=== PATIENT | male | born 1945 | race Caucasian/White ===

== ENCOUNTER 2017-08-06 14:59 | Observation (INO) | payer MEDICARE ==
--- NOTE | 2017-08-06 16:08 | ERPHSYRPT ---
- History of Present Illness Time Seen by Provider: 08/06/17 15:54 Exam Limitations: no limitations Patient Subjective Stated Complaint: pt here for a cylinder ice pack in rectum since saturday and unable to remove it, pt states he is able to feel it with hes finger Triage Nursing Assessment: pt alert, resp easy, skin w/d/p,abd soft, no pain Physician History: The patient is a 71-year-old male complaining of a long tube lodged in his rectum since Saturday. He states that he was using a frozen cylinder approximately 1 inch in diameter and 8 inches long to soothe his hemorrhoids. He placed this in his rectum with the help of his girlfriend. The tube went beyond the anus and has been lodged up in the rectum. He has tried stool softeners without relief of dislodging the tube, however, he has been able to have a bowel movement around the tube. He denies pain. He states he has done this before but it has never become lodged up in him. His past medical history is significant for cardiac bypass surgery, diabetes, congestive heart failure, hypertension, and GERD. Timing/Duration: day(s) (3), sudden Severity: moderate Modifying Factors: Improves With: nothing Associated Symptoms: denies symptoms Allergies/Adverse Reactions: No Known Drug Allergies Allergy (Unverified 08/06/17 15:18) Home Medications: Carvedilol [Carvedilol] 1 tab DAILY 08/06/17 [History] Furosemide [Furosemide] 1 tab DAILY 08/06/17 [History] Glimepiride [Glimepiride] 2 mg DAILY 08/06/17 [History] Hydrocodone/Acetaminophen [Hydrocodone-Acetamin 7.5-325] 1 tab DAILY 08/06/17 [ History] Losartan Potassium [Losartan Potassium] 1 tab DAILY 08/06/17 [History] Magnesium Oxide 400 mg [Mag-Ox 400] 1 tab DAILY 08/06/17 [History] Metformin HCl Xr 500 mg [Glucophage XR 500 MG] 500 mg BID 08/06/17 [ History] Paroxetine HCl [Paroxetine HCl] 1 tab DAILY 08/06/17 [History] Potassium Chloride 10 Meq Tab* [Klor Con 10 MEQ] 1 tab DAILY 08/06/17 [ History] Ranitidine HCl 150 mg DAILY 08/06/17 [History] Rivaroxaban 10 mg Tablet [Xarelto 10 mg Tablet] 1 tab DAILY 08/06/17 [ History] Hx Influenza Vaccination/Date Given: Yes Hx Pneumococcal Vaccination/Date Given: Yes Immunizations Up to Date: Yes - Review of Systems Constitutional: No Fever, No Chills Eyes: No Symptoms Ears, Nose, & Throat: No Symptoms Respiratory: No Cough, No Dyspnea Cardiac: No Chest Pain, No Edema, No Syncope Abdominal/Gastrointestinal: Other (foreign body in rectum) Genitourinary Symptoms: No Dysuria Musculoskeletal: No Back Pain, No Neck Pain Skin: No Rash Neurological: No Dizziness, No Focal Weakness, No Sensory Changes Psychological: No Symptoms Endocrine: No Symptoms Hematologic/Lymphatic: No Symptoms Immunological/Allergic: No Symptoms All Other Systems: Reviewed and Negative - Past Medical History Pertinent Past Medical History: Yes Cardiac History: Congestive Heart Failure, Coronary Artery Disease - Past Surgical History Past Surgical History: Yes Cardiac: CABG Musculoskeletal: Orthopedic Surgery Other Surgical History: carpal tunnel, ankle surg - Social History Smoking Status: Former smoker Exposure to second hand smoke: No Drug Use: none Patient Lives Alone: No - Nursing Vital Signs Nursing Vital Signs: Initial Vital Signs Temperature 97.5 F 08/06/17 15:10 Pulse Rate 106 H 08/06/17 15:10 Respiratory Rate 16 08/06/17 15:10 Blood Pressure 136/82 08/06/17 15:10 O2 Sat by Pulse Oximetry 96 08/06/17 15:10 Pain Scale Pain Intensity 0 - Physical Exam General Appearance: no apparent distress, alert Eye Exam: PERRL/EOMI, eyes nml inspection Ears, Nose, Throat Exam: normal ENT inspection, TMs normal, pharynx normal, moist mucous membranes Neck Exam: normal inspection, non-tender, supple, full range of motion Respiratory Exam: normal breath sounds, lungs clear, No respiratory distress Cardiovascular Exam: regular rate/rhythm, normal heart sounds, normal peripheral pulses Rectal Exam: other (RAZA is significant for hard foreign body at finger's length in the rectum. ) Back Exam: normal inspection, normal range of motion, No CVA tenderness, No vertebral tenderness Extremity Exam: normal inspection, normal range of motion, pelvis stable Neurologic Exam: alert, oriented x 3, cooperative, normal mood/affect, nml cerebellar function, nml station & gait, sensation nml, No motor deficits Skin Exam: normal color, warm, dry, No rash Lymphatic Exam: No adenopathy SpO2 Interpretation: normal SpO2: 96 Oxygen Delivery: Room Air Ordered Tests: Active Orders 24 hr Category Date Time Status EKG-ER Only STAT Care 08/06/17 17:09 Active IV Insertion STAT Care 08/06/17 16:29 Active ABDOMEN AND PELVIS W/0 CONTRAS [CT] Stat Exams 08/06/17 16:29 Completed BMP Stat Lab 08/06/17 16:43 Completed CBC W DIFF Stat Lab 08/06/17 16:40 Completed Lactic Acid Stat Lab 08/06/17 16:29 Results Medication Summary Generic Name Dose Route Start Last Admin Trade Name Freq PRN Reason Stop Dose Admin Sodium Chloride 1,000 mls @ 100 mls/hr 08/06/17 16:30 08/06/17 16:54 Sodium Chloride 0.9% 1000 Ml IV 09/05/17 16:29 100 mls/hr .Q10H KENIA Administration Discontinued Medications Generic Name Dose Route Start Last Admin Trade Name Freq PRN Reason Stop Dose Admin Cefoxitin Sodium Confirm 08/06/17 17:04 Mefoxin 2 Gm Premix Administered 08/06/17 17:05 Dose 2 gm in 50 mls @ ud IV .[facility] Lab/Rad Data: Laboratory Result Diagrams 08/06/17 16:40 08/06/17 16:43 Laboratory Results 08/06/17 08/06/17 08/06/17 Range/Units 16:43 16:40 16:29 WBC 12.0 H (4.0-10.5) K/mm3 RBC 4.34 (4.1-5.6) M/mm3 Hgb 13.2 (12.5-18.0) gm/dl Hct 39.7 L (42-50) % MCV 91.5 (78-100) fl MCH 30.4 (26-32) pg MCHC 33.2 (32-36) g/dl RDW 12.6 (11.5-14.0) % Plt Count 315 (150-450) K/mm3 MPV 8.5 (6-9.5) fl Gran % 76.2 H (36.0-66.0) % Eos # (Auto) 0.15 (0-0.5) Absolute Lymphs (auto) 2.06 (1.0-4.6) Absolute Monos (auto) 0.62 (0.0-1.3) Lymphocytes % 17.1 L (24.0-44.0) % Monocytes % 5.1 (0.0-12.0) % Eosinophils % 1.2 (0.00-5.0) % Basophils % 0.4 (0.0-0.4) % Absolute Granulocytes 9.16 H (1.4-6.9) Basophils # 0.05 (0-0.4) Sodium 143 (137-145) mmol/L Potassium 4.3 (3.5-5.1) mmol/L Chloride 106 (98-107) mmol/L Carbon Dioxide 22 (22-30) mmol/L Anion Gap 19.2 H (5-15) MEQ/L BUN 31 H (9-20) mg/dL Creatinine 1.41 H (0.66-1.25) mg/dL Estimated GFR 52.8 ML/MIN Glucose 165 H (74-106) mg/dL Lactic Acid 2.0 (0.4-2.0) Calcium 9.9 (8.4-10.2) mg/dL - Progress Progress: unchanged Progress Note: 08/06/17 16:28 An attempt was made by me to extract the foreign object using an anus scope for dilation of the penis and ringed hemostats to grasp the object. The object was easily felt with the ringed hemostats and grasped. A single attempt was made to then extract the tube but the hemostats slipped off the tube. There was irritation of the mucosal lining with some mild bleeding due to the patient being on Xarelto. I called Dr. Clark our surgeon who will accept the patient for foreign body extraction if Dr. Dillon, the local doctor, will accept the patient following the procedure. Discussed with : Amber Counseled pt/family regarding: diagnosis - Departure Time of Disposition: 17:14 Departure Disposition: Observation (per Dr Dillon and Dr Skinner under) Clinical Impression: Rectal foreign body Condition: Stable Critical Care Time: No Referrals: MARTINEZ JACQUES [Primary Care Provider] -
[2017-08-06] MEDS ORDERED: Sodium Chloride 0.9% 1000 ML 1,000 ML IV SCH (16:30)
[2017-08-06 16:45] LABS: BASOPHIL % 0.4 % (0.0-0.4); Basophil (Absolute #) 0.05 (0-0.4); Eosinophil % 1.2 % (0.00-5.0); Eosinophil (Absolute #) 0.15 (0-0.5); Granulocyte Absolute (ANC) 9.16 (1.4-6.9); Granulocytes % 76.2 % (36.0-66.0); Hematocrit 39.7 % (42-50); Hemoglobin 13.2 gm/dl (12.5-18.0); Lymphocyte (Absolute #) 2.06 (1.0-4.6); Lymphocytes % 17.1 % (24.0-44.0); Mean Cell Volume 91.5 fl (78-100); Mean Corpuscular Hemoglobin 30.4 pg (26-32); Mean Corpuscular Hgb Concent. 33.2 g/dl (32-36); Mean Platelet Volume 8.5 fl (6-9.5); Monocyte (Absolute #) 0.62 (0.0-1.3); Monocytes % 5.1 % (0.0-12.0); Platelet Count 315 K/mm3 (150-450); Red Blood Count 4.34 M/mm3 (4.1-5.6); Red Cell Distribution Width 12.6 % (11.5-14.0)
[2017-08-06] MEDS ORDERED: Sodium Chloride 0.9% 1000 ML 1,000 ML ONE (16:53)
[2017-08-06] MEDS ORDERED: MEFOXIN 2 GM PREMIX** 2 GM/50 ML ML IV ONE (17:04)
--- NOTE | 2017-08-06 17:07 | XRAY ---
Indication: Rectal foreign body insertion. Multiple contiguous axial images obtained through the abdomen and pelvis without contrast as ordered. Comparison: None Lung bases are clear. Heart is not enlarged. Small hiatal hernia. Partially visualized electronic stimulator device in the left mid axillary line. Stomach is distended with food/fluid. Noncontrasted stomach and bowel loops appear nonobstructed. Mild/moderate diffuse scattered colonic fecal debris throughout including rectum. Normal air-filled appendix. 9.5 cm left upper pole renal cyst, and a few calcified splenic granulomas. No free fluid/air. Remaining liver, gallbladder, pancreas, spleen, adrenal glands, kidneys, ureters, and bladder appear unremarkable for noncontrast exam. Moderate aortoiliac calcifications without AAA. Osseous structures intact with moderate multilevel degenerative spondylosis. Lesser degenerative changes of both hips. 1 m right innominate bone island adjacent to the SI joint. Impression: 1. No rectal radiopaque foreign body, free fluid/air, or evidence for perforation. 2. Diffuse fecal stasis without obstruction. 3. Large left renal cyst and small hiatal hernia. CTDI 21.80
[2017-08-06 17:09] LABS: ANION GAP 19.2 MEQ/L (5-15); Calcium 9.9 mg/dL (8.4-10.2); Creatinine 1 1.41 mg/dL (0.66-1.25); Potassium 4.3 mmol/L (3.5-5.1)
[2017-08-06] MEDS ORDERED: BICITRA 30 ML CUP ONE (17:45)
[2017-08-06] MEDS ORDERED: FAMOTIDINE 20 MG PIGGYBACK 20 MG/50 ML ML IV ONE ×2 (17:46→17:47)
[2017-08-06] MEDS ORDERED: Reglan 10 MG/2 ML ONE (17:46)
[2017-08-06 18:41] LABS: ABO TYPING O; Antibody Screen NEGATIVE (NEGATIVE); RH TYPING POSITIVE
[2017-08-06 20:11] VITALS: BP 123/64; PULSE 93; O2SAT 97
[2017-08-06] MEDS ORDERED: BREVIBLOC 100 MG/10 ML IV ONE (21:14)
[2017-08-06] MEDS ORDERED: Quelicin Fliptop 200 MG/10 ML IV ONE (21:14)
[2017-08-06] MEDS ORDERED: Amidate 20 MG/10 ML IV ONE (21:14)
[2017-08-06] MEDS ORDERED: Zemuron 100 MG/10 ML IV ONE (21:14)
--- NOTE | 2017-08-07 07:54 | HP ---
CONSULT DATE: 08/06/2017 HISTORY: A 71 year-old gentleman apparently his girlfriend had placed a foreign body up his rectum a couple days ago. He is unable to pass bowel movements, had small bowel movements around it, unable to pass the object. He is apparently from [place] where his family doctor is. He came over to the [facility] Emergency Room. The emergency room did a CT scan with no obvious perforation. The emergency room doctor was able to feel it and tried to get a hold of it with a clamp. He was unable to remove the object. Therefore they asked for surgical consult for removal. PAST MEDICAL HISTORY: Heart disease. He also has diabetes. He used to have hypertension until he had his heart surgery. His blood pressure has been down since then. He has had atrial fibrillation and heart issues in the past. He denied prior myocardial infarction when I asked him. PAST SURGICAL HISTORY: He had open heart surgery by Dr. Lou in the past. Unclear rectal procedure. He also had defibrillator and pacemaker in the past. He denied any prior abdominal surgery. HOME MEDICATIONS: Robaxin, carvedilol, hydrocodone, Glimepiride, Furosemide, magnesium oxide, losartan, ranitidine, paroxetine, Metformin, Glucophage, potassium chloride. ALLERGIES: NKDA. FAMILY HISTORY: Negative in regards to this problem. SOCIAL HISTORY: He denies alcohol abuse. REVIEW OF SYSTEMS: He had a little bit of constipation otherwise no significant abdominal pain currently. He did have a little bit of ooze as he had been on Xarelto in the past after the emergency room tried some manipulation. Twelve systems reviewed per admission assessment. No chest pain or palpitations other systems negative or noncontributory as above and per preadmission questionnaire. PHYSICAL EXAMINATION: GENERAL: No acute distress. HEENT: Sclera nonicteric. NECK: No JVD. CHEST: Equal excursion, nonlabored breathing. CVS: Regular rate and rhythm. ABDOMEN: Soft. No peritoneal signs. Some mild distention. No rebound or guarding currently. EXTREMITIES: No significant edema. NEURO: Alert, moving extremities grossly symmetrically. RECTAL: Deferred to time of OR endoscopy and removal time. LAB DATA AND TESTS: CT did not show any obvious perforation at this point. Vitals and labs as noted per the chart. IMPRESSION: Retained rectal foreign body unable to be removed locally. I feel best option is to proceed under general anesthetic. It was felt with the risk of this staying in there much longer a much higher risk of creating perforation and risk of proceeding under anesthetic at this time. General risk of anesthesia, deep venous thrombosis, pulmonary embolism, pneumonia. Risk of aspiration. Possibility of inability to remove this object rectally and might require laparotomy. Risk of bleeding or infection, risk of wound infection or wound complications possibly requiring opening the bowel with risk of subsequent closure or anastomosis depending on the procedure if necessary. Risk of complications such as fistula, leak, abscess or failure to heal possibly requiring other procedure, ongoing morbidity. General risk of anesthesia, deep venous thrombosis, pulmonary embolism, pneumonia, general risk of aches and pains and plan on proceeding under anesthetic to relax him enough to remove this object and after the object is removed likely will do colonoscopy to verify that no other objects, issues or injury at this time. General risk of bleeding or infection, risk of delayed bowel perforation, abscesses or complication possibly requiring other procedures or even diverting ostomy. He expressed his understanding and agrees to the planned procedure, will proceed with colonoscopy under anesthetic, removal of foreign body, possible laparotomy, possible bowel intervention pending operative findings.
--- NOTE | 2017-08-07 07:57 | OP ---
SURGERY DATE/TIME: 08/06/2017 4413 PREOPERATIVE DIAGNOSIS: Persistently retained foreign body rectum. POSTOPERATIVE DIAGNOSIS: Persistently retained foreign body rectum. Mild visible rectal abrasions (no evidence of any full thickness injury endoscopically). PROCEDURES: 1) Exam under anesthesia. Removal of retained rectal foreign body (smooth blue handle-shaped approximately 2.5 to 3 cm diameter by nearly 20 cm long cylindrical solid object rounded on both ends). 2) Colonoscopy to mid transverse colon. SURGEON: Dr. Jessee Skinner. ANESTHESIA: General. ESTIMATED BLOOD LOSS: Minimal. INDICATIONS: As noted above. Risks and benefits explained in detail but not limited to and consent obtained. DESCRIPTION OF PROCEDURE AND FINDINGS: The patient is taken to the operating room. General anesthesia induced. Placed in lateral position. Weighted lubricated rectal retractors carefully inserted. A blue handle-shaped rectal object visualized. With a combination of pulling it down some with the ringed clamp where it could be grasped with fingers. It was gently able to removed and passed off again measuring nearly 19 cm long rounded on both ends solid cylindrical in shape about 2.5 cm to under 3 cm diameter. At this point verified there is no obvious full thickness issues secondary to the patient's girlfriend placing the object. Video colonoscope carefully inserted and navigated past the poorly prepped colon. A large amount of solid stool. Slowly and carefully up to sigmoid, descending, around the mid transverse colon. On withdrawal of the scope no obvious large masses. Again the poor prep limiting the exam for very small lesions other than what appeared to be superficial abrasions in the lower rectum. There did not appear to be any evidence of any full thickness issues or injury. Irrigation was accomplished. There had been minimal bleeding from when the emergency room manipulated the object. Again, no obvious gross full thickness issues or injury at this time. Appeared that he had some superficial abrasion. At this point he tolerated the procedure. The scope was withdrawn. He did have some internal and external hemorrhoids. He had some diverticulosis. There did not appear to be any obvious issues from the patient inserting the object and staying in there for a couple of days as well as the emergency room manipulation at this time. The scope is withdrawn. The patient is transferred to the recovery room in stable condition, extubated. There were no immediate complications. There was no family available to discuss the findings with. It was felt that he could be released home after recovery room to his caregiver. Follow up as needed. He is to return if he experiences increasing severe abdominal pain or any other concerns.
== END 2017-08-06 21:15 | disposition home or self-care (01) ==
LOC: ED 14:59 → MED SURG 18:55
PROVIDERS: ADMIT Internal Medicine; ATTEND Internal Medicine
PROC: 0DJD8ZZ Inspection of Lower Intestinal Tract, Via Natural or Artificial Opening Endoscopic (ICD-10-PCS; principal; 2017-08-06)
PROC: 0DCP7ZZ Extirpation of Matter from Rectum, Via Natural or Artificial Opening (ICD-10-PCS; 2017-08-06)
DX: T18.5XXA Foreign body in anus and rectum, initial encounter (principal); S30.817A Abrasion of anus, initial encounter
CPT/HCPCS: 36000; 36415; 74176; 80048; 83605; 85025; 86850; 86900; 86901; 88300; 93005; 96360; 99100; 99140; 99284; 99285; J0330; J0694; A9270-GY